=== PATIENT | male | born 1990 | race Caucasian/White ===

== ENCOUNTER 2017-01-04 01:49 | Observation (INO) | payer OTHER ==
--- NOTE | ~2017-01-04 | CT4 ---
[facility] A Service of [facility] & [facility] RADIOLOGY TEXT RESULTS PATIENT: SERJIO LEÓN LOCATION: [facility] 464-01 : [birth year] UNIT #: [id number] AGE: [address]: Alexandro Martin MD SEX: M ORDER DR: [id number] [facility] [address] [place], [place] [address] [id number] I MR#: [id number] Acc #: [id number] NAME: SERJIO LEÓN. : 1990 SEX: M STUDY DATE/TIME: 01/04/2017 02:47 UNIT: SEDOF ROOM: D61017 STUDY DESCRIPTION: CT Abd and Pelv Wo Cont Attending Physician: Gurinder Garcia M.D. Ordering Physician: Gurinder Jacobs M.D. Primary Care Physician: Primary Care Physician No MEDICAL IMAGING REPORT This report is preliminary unless electronic signature is present EXAM CT abdomen and pelvis 01/04/2017 02:47 INDICATION Abdominal pain with nausea, worse over the last 2 hours. Pain currently rates 10/10. Patient has a history of HIV and narcotic abuse. TECHNIQUE Axial images were obtained through the abdomen and pelvis without contrast. Multiplanar reformats were obtained. Comparison made with 10/06/2016. This CT examination was performed with one or more of the following radiation dose reduction techniques: automatic exposure control, adjustment of mA and/or kV according to patient size, and iterative reconstruction. FINDINGS ABDOMEN: Lung bases are clear. Gallbladder grossly normal. No renal or ureteral stones are seen. There is no hydronephrosis. The unenhanced solid organs are within normal limits. Again seen is severe levoscoliosis in the lumbar spine. Unopacified GI tract is grossly normal. PELVIS: There are no lower ureteral stones. The bladder is normal. The appendix is dilated and it contains multiple appendicoliths. Additionally, there is wall thickening within portions of the appendix and there is adjacent fat stranding. Findings are in keeping with acute appendicitis. No abscess is seen. The rest of the GI tract is within normal limits. There is some dependent free fluid in the pelvis. Bilateral inguinal lymph nodes seen on the prior study are improved. Enlarged lymph nodes in the presacral space seen previously are also improved. IMPRESSION [facility]. [facility] A Service of [facility] & [facility] RADIOLOGY TEXT RESULTS PATIENT: SERJIO LEÓN LOCATION: C4 464-01 : [birth year] UNIT #: [id number] AGE: [address]: Alexandro Martin MD SEX: M ORDER DR: 1. Study is positive for acute appendicitis. The appendix is enlarged and thickened and contains appendicoliths. There is adjacent fat stranding, but no abscess is seen. 2. There is trace dependent free fluid in the pelvis, nonspecific. 3. The remainder of the GI tract is normal. 4. No renal or ureteral stones. No hydronephrosis. 5. Interval improvement in inguinal and presacral adenopathy as compared with the prior study. Dictated by... Alexandro Kasper Jr., M.D. THIS IS AN ELECTRONICALLY VERIFIED REPORT Alexandro Kasper Jr., M.D. at 01/04/2017 10:13 PM ALEXANDRA/carmela TD: 01/04/2017 06:09 JOB #: [id number] MEDICAL IMAGING REPORT Page 1 of 1 COPY
--- NOTE | ~2017-01-04 | DS ---
Unit #: [id number] #: [id number] Patient: SERJIO DYKES [id number] [address] [address] [id number] I MR#: [id number] NAME: SERJIO DYKES ROOM: 464 Age: 26 Sex: M Admission Date: 01/04/2017 : 1990 Discharge Date: 01/05/2017 Attending Physician: Alexandro Matrin M.D. Primary Care Physician: Primary Care Physician No DISCHARGE SUMMARY HISTORY AND HOSPITAL COURSE Mr. Dykes is a 26-year-old gentleman, presented to the ER with acute appendicitis. He went to the operating room and had an uncomplicated laparoscopic appendectomy. He was admitted to the hospital overnight and he remained afebrile. He is tolerating a diet and has excellent urine output. His abdomen is soft and his wounds are healing without complications. He will be discharged home today to continue his home medications and he was given a prescription for Seaside for pain control. He is to follow up in the office in 7 to 10 days. The patient will be discharged home in stable condition and undergo diet and activity as tolerated. He may shower and use a laxative as needed. A prescription for Seaside was left for pain control. He is to call the office at [phone] and followup in 7 to 10 days. Dictated by... Ayanna Newton/curt TD: 01/06/2017 15:00 JOB #: [id number] DISCHARGE SUMMARY Page 1 of 1 X Alexandro Martin MD X DISCHARGE SUMMARY
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
--- NOTE | ~2017-01-04 | OR ---
Unit #: [id number] #: [id number] Patient: SERJIO LEÓN [id number] [facility] [address] [place], [place] [address] [id number] I MR#: [id number] NAME: SERJIO LEÓN. ROOM: 09551 Date of Procedure: 01/04/2017 Admission Date: 01/04/2017 Surgeon: Alexandro Martin M.D. : 1990 Attending Physician: Alexandro Martin M.D. Primary Care Physician: No Primary Care Physician PROCEDURE OPERATIVE NOTE PREOPERATIVE DIAGNOSIS Acute appendicitis. POSTOPERATIVE DIAGNOSIS Acute appendicitis. PROCEDURE PERFORMED Laparoscopic appendectomy. SURGEON Alexandro Martin M.D. ANESTHESIA General endotracheal. ESTIMATED BLOOD LOSS Less than 20 mL. INDICATION 26-year-old gentleman presented to the ER with 18 hour history of diffuse abdominal pain, now localized to the right lower quadrant. CT was consistent with appendicitis. PROCEDURE The patient was admitted to [facility] from [facility], positively identified and transported to the operating room. After induction of general endotracheal anesthesia, a Dougherty catheter was placed and his abdominal wall hair was clipped. He received a gram of Invanz IV and he was prepped and draped in the usual sterile fashion. A 5 mm supraumbilical incision was made. A Veress needle was placed, pneumoperitoneum was created and then a 5 mm trocar. Laparoscope was introduced into the peritoneal cavity under direct vision. A 5 mm suprapubic and a 12 mm infraumbilical trocar were placed. The appendix was retrocecal and, once I mobilized the cecum, I could grasp and elevate the appendix and separate the mesoappendix from the base of the appendix. The appendix was clamped, divided and ligated using an Endo-NANCY as it entered into the cecum. Staple line was intact and had good hemostasis. The mesoappendix was then clamped, divided and ligated using a vascular load on an Endo-NANCY and, again, there was excellent hemostasis. The appendix was placed in an EndoCatch bag and brought out through the 12 mm port site. I then recreated the pneumoperitoneum and irrigated the site. There was excellent hemostasis. The bowel was placed back in the anatomic Unit #: [id number] #: [id number] Patient: SERJIO LEÓN position. Omentum was pulled over the cecum and then I closed the 12 mm fascial defect with a neoClose device and the closure was airtight. I then reduced the pneumoperitoneum as I removed the laparoscope and trocar. 0.5% Marcaine and epinephrine was infiltrated in each trocar site. Skin was closed with 4-0 Monocryl subcuticular closure and Dermabond skin adhesive. Dougherty catheter was removed. The patient tolerated the procedure well and was transported to recovery in stable condition. Findings and postoperative instructions were discussed with his family. Dictated by... Ayanna Newton/kelsey TD: 01/04/2017 12:58 JOB #: [id number] PROCEDURE OPERATIVE NOTE Page 1 of 1 X Alexandro Martin MD X PROCEDURE OPERATIVE NOTE
[~2017-01-04 01:49] MED LIST: CIPRO PO; CLEOCIN HCL300 M1 PO; FLAGYL PO; FLEXERIL10 MG PO; LORTAB 5-325 M1 EACH PO; NO MEDICATIONS; NORFLEX100 M1 PO; VISTARIL PO; VOLTAREN75 MG PO
[2017-01-04 02:43] LABS: BASOPHIL% 0.1 % (0-2.5); DIFF IND NO; EOSINOPHIL% 0.1 % (0.0-7.0); HEMATOCRIT 43.5 % (38.0-50.0); LYMPHOCYTE# 2.6 X10e3 (1.0-3.5); LYMPHOCYTE% 19.3 % (17.0-45.0); MEAN CELL VOLUME 90.6 FL (83-96); MEAN CORPUSCULAR HEMOGLOBIN 31.2 PG (28-34); MEAN CORPUSCULAR HGB CONC 34.5 g/dL (30-36); MEAN PLATELET VOLUME 7.4 FL (6.5-11.5); MONOCYTE# 0.7 X10e3 (0-1.0); MONOCYTE% 5.3 % (3.0-12.0); NEUTROPHIL% 75.2 % (40-75); PLATELET COUNT 294 X10e3 (140-420); RED CELL DISTRIBUTION WIDTH 15.4 % (11.0-15.5); WHITE BLOOD COUNT 13.2 X10e3 (4.0-10.5)
[2017-01-04 03:07] LABS: ALBUMIN SERUM 4.4 g/dL (3.5-5.0); BILIRUBIN, DIRECT 0.1 mg/dL (0.0-0.2); BILIRUBIN,INDIRECT 0.3 mg/dL (0.0-0.9); BILIRUBIN,TOTAL 0.4 mg/dL (0.2-2.0); BUN/CREATININE RATIO 11.11; CALCIUM SERUM 9.6 mg/dL (8.4-10.2); CREATININE SERUM 0.9 mg/dL (0.6-1.4); GLOM FILT RATE Estimated 116.6 mL/min (>60); POTASSIUM 3.7 mmol/L (3.5-5.1); PROTEIN TOTAL SERUM 8.2 g/dL (6.0-8.3)
[2017-01-04 03:41] LABS: PROTHROMBIN TIME (PATIENT) 11.5 SECONDS (9.5-12.4)
[2017-01-04 03:55] LABS: PARTIAL THROMBOPLASTIN TIME 27.1 SECONDS (25.6-38.1)
[2017-01-04 04:19] LABS: URINE SOURCE CLEAN CATCH
[2017-01-04 04:23] LABS: URINE APPEARANCE CLEAR; URINE BILIRUBIN NEG (NEG); URINE BLOOD NEG (NEG); URINE COLOR YELLOW; URINE GLUCOSE NEG (NORM); URINE KETONE NEG (NEG); URINE LEUKOCYTE ESTERASE NEG (NEG); URINE NITRATE NEG (NEG)
[2017-01-04 04:24] LABS: MICRO INDICATED? NO; URINE PROTEIN NEG (NEG)
[2017-01-04 04:31] LABS: AMPHETAMINE NEG (NEG); BARBITURATES NEG (NEG); BENZODIAZEPINES NEG (NEG); COCAINE NEG (NEG); MARIJUANA NEG (NEG); OPIATES NEG (NEG); TRICYCLIC ANTIDEPRESSANTS NEG (NEG); U METHADONE NEG (NEG)
[2017-01-04] MEDS ORDERED: GENVOYA TABLET1 EACH PO (09:58)
[2017-01-05] MEDS ORDERED: HYDROCODON-ACE1 EAC9 PO (07:56)
== END 2017-01-05 08:24 | disposition home or self-care (01) ==
LOC: SED 01:49 → CED 02:27 → SED 02:27 → SEDOF 04:19 → CEDOF 10:03 → CED 10:18 → CEDOF 14:38 → C4C 14:38
PROVIDERS: Emergency Medicine; Specialist
PROC: 0DTJ4ZZ Resection of Appendix, Percutaneous Endoscopic Approach (ICD-10-PCS; principal; 2017-01-04 09:30)
DX: K35.80 Unspecified acute appendicitis (principal); B20 Human immunodeficiency virus [HIV] disease; F17.200 Nicotine dependence, unspecified, uncomplicated; Z79.899 Other long term (current) drug therapy; Z87.898 Personal history of other specified conditions; Z82.49 Family history of ischemic heart disease and other diseases of the circulatory system
CPT/HCPCS: 36415; 74176; 80048; 80076; 80307; 81003; 83690; 85025; 85610; 85730; 88304; 96361; 96365; 96375; 96376; 99285; G0378; J0330; J1335; J1885; J2250; J2270; J2405; J2543; J2710; J3010